=== PATIENT | male | born 1985 | race Two or more races ===

== ENCOUNTER → 2019-08-31 | Outpatient (CLI) | payer BC, OTHER | END | disposition home or self-care (01) | LOC: PUC 17:07 | PROVIDERS: ATTEND Nurse Practitioner | DX: J20.9 Acute bronchitis, unspecified (principal) ==

== ENCOUNTER 2019-10-05 16:27 | Emergency (ER) | payer OTHER ==
[~2019-10-05] VITALS: Ht 157.5 cm; Wt 81.8 kg
[2019-10-05] MEDS ORDERED: PERTUSS(ACELL),DIPH,TET VAC/PF 0.5 ML VIAL IM ONE (17:15)
[2019-10-05 18:28] VITALS: BP 140/82
== END 2019-10-05 18:50 | disposition home or self-care (01) ==
LOC: EMS 16:28
DX: R76.11 Nonspecific reaction to tuberculin skin test without active tuberculosis (principal); Z23 Encounter for immunization; Z88.0 Allergy status to penicillin
CPT/HCPCS: 90471; 90715

== ENCOUNTER 2020-07-16 16:24 | Emergency (ER) | payer OTHER ==
[~2020-07-16] VITALS: Ht 152.4 cm; Wt 77.3 kg
[2020-07-16 16:29] VITALS: BP 137/86
== END 2020-07-16 17:23 | disposition home or self-care (01) ==
LOC: EMS 16:24
DX: Z11.1 Encounter for screening for respiratory tuberculosis (principal)
CPT/HCPCS: 71046; 71046-TC